=== PATIENT | male | born 1945 | race Caucasian/White ===

== ENCOUNTER → 2017-05-22 | Outpatient (REF) | payer BC ==
[~2017-05-22] MED LIST: ASPI1TAB PO; CARV6.25 PO; CRES40TA PO; DRIS50002 PO; FENO67CA2 PO; FINA5TAB2 PO; FLOM5CAP PO; FURO20TA2 PO; JANU100T PO; K-TA10TA2 PO; LISI10TA4 PO; METF10004 PO; VASC1CAP2 PO; ZYLO300T4 PO
== END ==
LOC: M LAB REF 12:32
PROVIDERS: ATTEND Family Medicine
DX: M10.9 Gout, unspecified (principal)

== ENCOUNTER → 2018-03-20 | Outpatient (REF) | payer BC ==
[2018-03-20 13:32] LABS: INR 0.92; PROTHROMBIN TIME 12.4 SECONDS (12.1-14.4)
[2018-03-20 13:43] LABS: URIC ACID 2.7 MG/DL (3.5-7.2)
== END ==
LOC: M LAB REF 12:45
DX: M47.26 Other spondylosis with radiculopathy, lumbar region (principal); M48.062 Spinal stenosis, lumbar region with neurogenic claudication; Z01.818 Encounter for other preprocedural examination
CPT/HCPCS: 84550

== ENCOUNTER → 2018-08-28 | Outpatient (REF) | payer BC ==
[~2018-08-28] MED LIST changes: -DRIS50002 PO; +DRIS50003 PO; +FLOM0.4C39 PO; -FLOM5CAP PO; -ZYLO300T4 PO; +ZYLO300T6 PO
[2018-08-28 18:32] LABS: PERCENT SATURATION 18.8 % (19.7-50.0)
== END ==
LOC: M LAB REF 17:37
PROVIDERS: ATTEND Family Medicine
DX: D64.9 Anemia, unspecified (principal)

== ENCOUNTER → 2023-12-05 | Outpatient (REF) | payer MEDICARE, OTHER ==
[~2023-12-05] MED LIST changes: -ASPI1TAB PO; +ASPI81TA26 PO; +FENO67CA16 PO; -FENO67CA2 PO; -K-TA10TA2 PO; +LISI10TA22 PO; -LISI10TA4 PO; +POTA-165 PO
[2023-12-05 15:55] LABS: AMORPHOUS SEDIMENT SMALL (NEGATIVE); APPEARANCE, URINE HAZY (CLEAR); BACTERIA, URINE AUTO NEGATIVE (NEGATIVE); BILIRUBIN, URINE AUTO NEGATIVE (NEGATIVE); BLOOD, URINE BLOOD 1+ (NEGATIVE); COLOR, URINE YELLOW (YELLOW); GLUCOSE, URINE (UA) AUTO 3+ mg/dL (NEGATIVE); KETONE, URINE AUTO NEGATIVE (NEGATIVE); LEUKOCYTE ESTERASE, URINE AUTO 2+ (NEGATIVE); NITRITE, URINE AUTO NEGATIVE (NEGATIVE); PROTEIN, URINE AUTO NEGATIVE (NEGATIVE); RBC, URINE AUTO 6 /HPF (0-3); SPECIFIC GRAVITY URINE AUTO 1.023 (1.002-1.035); SQUAMOUS EPITHELIAL CELL UR AU 0 /HPF (0-6); UROBILINOGEN, URINE AUTO 0.2 mg/dL (0.0-2.0); WBC, URINE AUTO 176 /HPF (0-3)
== END ==
LOC: M SFHCPLAZ 14:57
PROVIDERS: ATTEND Internal Medicine Hematology
DX: Z87.438 Personal history of other diseases of male genital organs (principal)

== ENCOUNTER → 2024-01-18 | Outpatient (CLI) | payer MEDICARE | LOC: M RAD 11:19 | PROVIDERS: ATTEND Physician Assistant | DX: R33.9 Retention of urine, unspecified (principal) ==

== ENCOUNTER → 2024-02-16 | Outpatient (CLI) | payer MEDICARE ==
[2024-02-16 07:04] LABS: HEMATOCRIT 39.2 % (42.0-52.0); HEMOGLOBIN 13.7 g/dl (13.5-17.5); MEAN CORPUSCULAR HEMOGLOBIN 32.6 pg (27.0-33.0); MEAN CORPUSCULAR HGB CONC 34.9 g/dl (32.0-36.5); MEAN CORPUSCULAR VOLUME 93.3 fl (80.0-96.0); PLATELET COUNT, AUTOMATED 172 10^3/uL (150-450); WHITE BLOOD COUNT 4.8 10^3/uL (4.0-10.0)
[2024-02-16 07:25] LABS: CREATININE, URINE 117.1 MG/DL; MAU/CREAT RATIO 18.7 MCG/MG (0.0-30.0)
[2024-02-16 07:26] LABS: C REACTIVE PROTEIN QUANTITATIV < 0.40 MG/DL (<1.0)
[2024-02-16 07:28] LABS: ALKALINE PHOSPHATASE 57 U/L (46-116); ALT/SGPT 17 U/L (7.0-40); AST/SGOT 17 U/L (<34); BILIRUBIN,TOTAL 1.6 MG/DL (0.3-1.2); BLOOD UREA NITROGEN 18 MG/DL (9-23); CALCIUM LEVEL 9.4 MG/DL (8.3-10.6); CARBON DIOXIDE LEVEL 30 MMOL/L (20-31); CHLORIDE LEVEL 106 MMOL/L (98-107); CHOLESTEROL LEVEL 130 MG/DL (<200); CHOLESTEROL RISK RATIO 4.67 (<5); GLOMERULAR FILTRATION RATE > 60.0 (>35); GLUCOSE, FASTING 150 MG/DL (74-106); HDL CHOLESTEROL 27.8 MG/DL (>40); LDL CHOLESTEROL 39.8 MG/DL (<100); NON-HDL-C 102.2 MG/DL; SODIUM LEVEL 139 MMOL/L (136-145); TOTAL PROTEIN 7.2 G/DL (5.7-8.2); TRIGLYCERIDES LEVEL 312 MG/DL (<150)
[2024-02-16 07:29] LABS: TOTAL 25(OH) VITAMIN D 41.7 NG/ML (20.0-100.0)
[2024-02-16 07:30] LABS: FERRITIN 74.9 NG/ML (10.5-307.3); FREE T4 1.09 NG/DL (0.89-1.76); THYROID STIMULATING HORMONE 3.438 uIU/ML (0.55-4.78); VITAMIN B12 LEVEL 534 PG/ML (211-911)
[2024-02-16 08:19] LABS: HEMOGLOBIN A1c 6.4 % (4.0-6.0)
== END ==
LOC: M LAB 06:32
PROVIDERS: ATTEND Internal Medicine Hematology
DX: Z12.5 Encounter for screening for malignant neoplasm of prostate (principal); E61.1 Iron deficiency; E11.9 Type 2 diabetes mellitus without complications; Z79.899 Other long term (current) drug therapy
CPT/HCPCS: 36415; 80053; 80061; 82043; 82306; 82607; 82728; 83036; 84439; 84443; 85027; 86140; G0103

== ENCOUNTER → 2024-03-26 | Outpatient (REF) | payer MEDICARE ==
[2024-03-26 18:39] LABS: APPEARANCE, URINE CLOUDY (CLEAR); BACTERIA, URINE AUTO NEGATIVE (NEGATIVE); BILIRUBIN, URINE AUTO NEGATIVE (NEGATIVE); BLOOD, URINE BLOOD 1+ (NEGATIVE); COLOR, URINE YELLOW (YELLOW); GLUCOSE, URINE (UA) AUTO NEGATIVE (NEGATIVE); KETONE, URINE AUTO NEGATIVE (NEGATIVE); LEUKOCYTE ESTERASE, URINE AUTO 3+ (NEGATIVE); NITRITE, URINE AUTO NEGATIVE (NEGATIVE); PROTEIN, URINE AUTO 1+ mg/dL (NEGATIVE); RBC, URINE AUTO 13 /HPF (0-3); SPECIFIC GRAVITY URINE AUTO 1.016 (1.002-1.035); SQUAMOUS EPITHELIAL CELL UR AU 0 /HPF (0-6); UROBILINOGEN, URINE AUTO 0.2 mg/dL (0.0-2.0); WBC, URINE AUTO TNTC /HPF (0-3)
== END ==
LOC: M LAB REF 17:03
PROVIDERS: ATTEND Urology
DX: Z87.440 Personal history of urinary (tract) infections (principal)

== ENCOUNTER → 2024-05-29 | Outpatient (REF) | payer MEDICARE ==
[2024-05-29 19:14] LABS: URIC ACID 2.7 MG/DL (3.7-9.2)
[2024-05-29 19:17] LABS: PERCENT SATURATION 29.7 % (19.7-50.0)
[2024-05-29 19:21] LABS: FERRITIN 41.4 NG/ML (10.5-307.3)
[2024-05-29 19:22] LABS: FOLATE 11.4 NG/ML (>5.4)
== END ==
LOC: M LAB REF 16:43
PROVIDERS: ATTEND Internal Medicine
DX: M10.9 Gout, unspecified (principal); D64.9 Anemia, unspecified

== ENCOUNTER → 2024-09-05 | Outpatient (REF) | payer MEDICARE | LOC: M SFHCDERM 13:49 | PROVIDERS: ATTEND Nurse Practitioner Family | DX: L57.0 Actinic keratosis (principal) ==

== ENCOUNTER → 2024-11-28 | Outpatient (REF) | payer MEDICARE | LOC: M LAB REF 13:38 | PROVIDERS: ATTEND Internal Medicine | DX: M10.9 Gout, unspecified (principal) ==

== ENCOUNTER → 2025-05-22 | Outpatient (REF) | payer MEDICARE ==
[~2025-05-22] MED LIST changes: -FLOM0.4C39 PO; +TAMS-18 PO
[2025-05-23 13:22] LABS: APPEARANCE, URINE CLOUDY (CLEAR); BACTERIA, URINE AUTO NEGATIVE (NEGATIVE); BILIRUBIN, URINE AUTO NEGATIVE (NEGATIVE); BLOOD, URINE BLOOD NEGATIVE (NEGATIVE); GLUCOSE, URINE (UA) AUTO 3+ mg/dL (NEGATIVE); KETONE, URINE AUTO NEGATIVE (NEGATIVE); LEUKOCYTE ESTERASE, URINE AUTO 3+ (NEGATIVE); NITRITE, URINE AUTO NEGATIVE (NEGATIVE); PROTEIN, URINE AUTO 1+ mg/dL (NEGATIVE); RBC, URINE AUTO 20 /HPF (0-3); SPECIFIC GRAVITY URINE AUTO 1.018 (1.002-1.035); SQUAMOUS EPITHELIAL CELL UR AU 1 /HPF (0-6); UROBILINOGEN, URINE AUTO 0.2 mg/dL (0.0-2.0); WBC, URINE AUTO TNTC /HPF (0-3)
== END ==
LOC: M SMT 12:54
PROVIDERS: ATTEND Physician Assistant
DX: R39.9 Unspecified symptoms and signs involving the genitourinary system (principal)

== ENCOUNTER → 2025-05-28 | Outpatient (REF) | payer MEDICARE ==
[2025-05-28 13:44] LABS: APPEARANCE, URINE CLOUDY (CLEAR); BACTERIA, URINE AUTO 1+ (NEGATIVE); BILIRUBIN, URINE AUTO NEGATIVE (NEGATIVE); BLOOD, URINE BLOOD NEGATIVE (NEGATIVE); GLUCOSE, URINE (UA) AUTO 2+ mg/dL (NEGATIVE); KETONE, URINE AUTO NEGATIVE (NEGATIVE); LEUKOCYTE ESTERASE, URINE AUTO 2+ (NEGATIVE); MUCUS, URINE SMALL (NEGATIVE); NITRITE, URINE AUTO NEGATIVE (NEGATIVE); PROTEIN, URINE AUTO 1+ mg/dL (NEGATIVE); RBC, URINE AUTO 6 /HPF (0-3); SPECIFIC GRAVITY URINE AUTO 1.018 (1.002-1.035); SQUAMOUS EPITHELIAL CELL UR AU 0 /HPF (0-6); UROBILINOGEN, URINE AUTO 0.2 mg/dL (0.0-2.0); WBC, URINE AUTO TNTC /HPF (0-3); YEAST LIKE CELL URINE AUTO SMALL
== END ==
LOC: M SMT 13:08
PROVIDERS: ATTEND Nurse Practitioner Family
DX: R39.9 Unspecified symptoms and signs involving the genitourinary system (principal)